=== PATIENT | female | born 1990 | race Caucasian/White ===

== ENCOUNTER 2025-06-28 18:34 | Emergency (ER) | payer MEDICAID | END 2025-06-28 19:57 | disposition home or self-care (01) | LOC: JP.ED 18:34 | DX: S90.121A Contusion of right lesser toe(s) without damage to nail, initial encounter (principal); Z79.899 Other long term (current) drug therapy; Z88.8 Allergy status to other drugs, medicaments and biological substances; Z88.0 Allergy status to penicillin; Z90.710 Acquired absence of both cervix and uterus; W22.8XXA Striking against or struck by other objects, initial encounter | CPT/HCPCS: 73630-26-RT; 73630-RT; 99283 ==